=== PATIENT | female | born 1995 | race Caucasian/White ===

== ENCOUNTER 2019-06-16 08:32 | Emergency (ER) | payer OTHER ==
[~2019-06-16] VITALS: Ht 180.3 cm; Wt 72.7 kg
[2019-06-16 08:36] VITALS: BP 131/85; PULSE 91; TEMP 98.1
[2019-06-16] MEDS ORDERED: SPRINTEC 35 MCG1 TAB PO (09:06)
[2019-06-16] MEDS ORDERED: ALDACTONE50 MG PO (09:06)
== END 2019-06-16 10:11 | disposition home or self-care (01) ==
LOC: COL.ER 08:32
DX: S09.90XA Unspecified injury of head, initial encounter (principal); S01.81XA Laceration without foreign body of other part of head, initial encounter; R40.2412 Glasgow coma scale score 13-15, at arrival to emergency department; W22.8XXA Striking against or struck by other objects, initial encounter; Y92.59 Other trade areas as the place of occurrence of the external cause

== ENCOUNTER → 2019-06-21 | Outpatient (CLI) | payer SELFPAY ==
[~2019-06-21] MED LIST: ALDACTONE50 MG PO; SPRINTEC 35 MCG1 TAB PO
[2019-06-21 13:55] VITALS: BP 119/72; PULSE 92; TEMP 97.9
== END ==
LOC: COL.ER 13:47
DX: S01.91XD Laceration without foreign body of unspecified part of head, subsequent encounter (principal); X58.XXXD Exposure to other specified factors, subsequent encounter